=== PATIENT | male | born 1980 | race Caucasian/White ===

== ENCOUNTER 2020-01-11 19:43 | Emergency (ER) | payer BC ==
[~2020-01-11] VITALS: Ht 182.9 cm; Wt 156.4 kg
[~2020-01-11 19:43] MED LIST: CARAFATE 1 GM TA1 GM PO; HYDROCODONE-AP1 EAC6 PO; NORCO 5-325 TA1 EACH PO; PEPCID20 MG PO
[2020-01-11] MEDS ORDERED: NORCO 5-325 TA1 EAC1 PO (20:34)
[2020-01-11 21:04] VITALS: BP 105/48
== END 2020-01-11 21:07 | disposition home or self-care (01) ==
LOC: M.ERS 19:43
DX: S83.8X2A Sprain of other specified parts of left knee, initial encounter (principal); W10.8XXA Fall (on) (from) other stairs and steps, initial encounter; Y93.89 Activity, other specified; Y92.89 Other specified places as the place of occurrence of the external cause; Y99.8 Other external cause status

== ENCOUNTER 2021-07-16 22:23 | Emergency (ER) | payer BC ==
[~2021-07-16] VITALS: Ht 182.9 cm; Wt 154.2 kg
[~2021-07-16 22:23] MED LIST changes: +NORCO 5-325 TA1 EAC1 PO
[2021-07-16] MEDS ORDERED: VAZALORE81 MG PO (22:36)
[2021-07-16 23:21] LABS: ABSOLUTE BASOPHILS 0.1 thou/uL (0.0-0.2); ABSOLUTE EOSINOPHILS 0.2 thou/uL (0.0-0.7); ABSOLUTE MONOCYTES 0.9 thou/uL (0.0-1.2); ABSOLUTE NEUTROPHILS 9.1 thou/uL (1.6-8.1); BASOPHILS 0.5 %; EOSINOPHILS 1.6 %; HEMATOCRIT 43.8 % (42.0-52.0); HEMOGLOBIN 15.2 gm/dL (14.0-18.0); LYMPHOCYTES 16.4 %; MCH 30.8 pg (26.0-34.0); MCHC 34.6 g/dL (28.0-37.0); MCV 88.8 fL (80.0-100.0); MONOCYTES 7.2 %; MPV 8.9 fl. (7.2-11.1); NUCLEATED RBCS 0 /100WBC; PLATELET COUNT* 242 thou/uL (150-400); POLYS 74.3 %; RBC 4.93 mil/uL (4.50-6.00); RDW-CV 13.4 % (10.5-14.5); WBC 12.3 thou/uL (4.0-11.0)
[2021-07-16 23:28] LABS: CALCIUM 8.5 mg/dL (8.5-10.1); CREATININE 1.2 mg/dL (0.6-1.3); POTASSIUM 4.1 mmol/L (3.5-5.1)
[2021-07-16 23:38] LABS: ALBUMIN 3.6 g/dL (3.4-5.0); TOTAL BILIRUBIN 0.3 mg/dL (<0.1-1.0); TOTAL PROTEIN 7.2 g/dL (6.4-8.2)
[2021-07-17] MEDS ORDERED: CARAFATE 1 GM TA1 GM PO (02:17)
[2021-07-17 02:30] VITALS: BP 138/74
--- NOTE | 2021-07-17 09:49 | EKG ---
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 : 1980 Requested By: Cintia Parham Order Number: [id number] MD: Betito Pope Measurements Intervals [place] Rate: 93 P: 32 AK: 146 QRS: 19 QRSD: 90 T: 31 QT: 340 QTc: 423 Interpretive Statements Sinus arrhythmia Multiple ventricular premature complexes Baseline wander in lead(s) II,III,aVR,aVL,aVF,V4 Compared to ECG 09/28/2017 04:23:06 Ventricular premature complex(es) now present Sinus rate has increased Electronically Signed On 07-17-2021 9:49:14 CDT by Betito Pope [email or web address] <ELECTRONICALLY SIGNED> By: Betito Pope MD, FAC 07/17/2149 22 22 Betito Pope MD, [facility] /EPI
== END 2021-07-17 02:30 | disposition home or self-care (01) ==
LOC: M.ERS 22:23
PROVIDERS: Emergency Medicine
DX: R07.89 Other chest pain (principal); R42 Dizziness and giddiness; R00.2 Palpitations; R11.0 Nausea; Z79.899 Other long term (current) drug therapy; Z90.49 Acquired absence of other specified parts of digestive tract; Z79.82 Long term (current) use of aspirin